=== PATIENT | female | born 1960 | race African-American/Black ===

== ENCOUNTER 2016-10-26 23:59 | Inpatient (IN) | payer MEDICAID, OTHER ==
[~2016-10-26] VITALS: Ht 157.5 cm; Wt 60.1 kg
[2016-10-27] VITALS (30 sets, daily range): BP systolic 82–134; BP diastolic 43–67
[2016-10-27 00:59] LABS: Basophils # (auto) 0 uL; Basophils % (auto) 0.1 % (0.0-2.0); Eosinophils # (auto) 0 uL; Eosinophils % (auto) 0.1 % (0.0-7.0); Hemoglobin 11.8 g/dL (12.2-16.2); Lymphocytes # (auto) 1.1 uL; Lymphocytes % (auto) 8.4 % (10.0-50.0); Mean Corpuscular Hemoglobin 31.1 pg (28.0-32.0); Mean Corpuscular Hgb Conc. 33.7 g/dL (32.0-36.0); Mean Corpuscular Volume 92.2 fL (80.0-100.0); Mean Platelet Volume 8.8 fL (7.4-10.4); Monocytes # (auto) 0.8 uL; Monocytes % (auto) 6.6 % (0.0-12.0); Neutrophils # (auto) 10.7 uL; Neutrophils % (auto) 84.8 % (37.0-80.0); Platelet Count (auto) 338 10^3/uL (140-450); Red Cell Distribution Width 14.6 % (11.6-16.0); White Blood Cell 12.6 10^3/uL (4.4-10.8)
[2016-10-27] MEDS ORDERED: LEVETIRACETAM INJ 1,000 MG in SODIUM CHL 0.9% 100 ML IV ONE (01:15)
[2016-10-27 01:19] LABS: Lactic Acid 5.7 mmol/L (0.4-2.0)
[2016-10-27 01:20] LABS: REFLEX LACTIC ACID YES OR NO YES
[2016-10-27 01:22] LABS: Albumin 3.4 g/dL (3.4-5.0); Alkaline Phosphatase 137 U/L (45-117); Anion Gap 21 (5-15); Aspartate Aminotransferase 26 U/L (15-37); BUN/Creatinine Ratio 18.6; Bilirubin, Total 0.5 mg/dL (0.2-1.0); Blood Urea Nitrogen 16 mg/dL (7-18); Calcium 7.9 mg/dL (8.5-10.1); Carbon Dioxide 19 mmol/L (21-32); Chloride 82 mmol/L (98-107); GFR African American 87 mL/min; GFR Non-African American 72 mL/min; Glucose 125 mg/dL (74-106); Magnesium 1.6 mg/dL (1.6-2.6); Sodium 122 mmol/L (136-145); Total Protein 7.4 g/dL (6.4-8.2)
[2016-10-27 01:34] LABS: Potassium 2.7 mmol/L (3.5-5.1)
[2016-10-27] MEDS ORDERED: LORazepam 2MG/ML-1ML VIAL ONE (01:44)
[2016-10-27] MEDS ORDERED: LORazepam 2MG/ML-1ML VIAL IV ONE (02:00)
[2016-10-27] MEDS ORDERED: LEVETIRACETAM 500 MG/5ML INJ IV ONE (02:05)
[2016-10-27] MEDS ORDERED: ETOMIDATE (2MG/ML) 20ML VIAL IV ONE ×2 (02:40→04:00)
[2016-10-27] MEDS ORDERED: SUCCINYLCHOLINE CHLORIDE 20 MG/ML 10ML VIAL IV ONE ×3 (02:40→04:00)
[2016-10-27] MEDS ORDERED: SODIUM CHLORIDE 0.9% 2,000 ML IV ONE (02:45)
[2016-10-27] MEDS ORDERED: MIDAZOLAM DRIP 100 mg/100mL NS 100 ML IV ONE (02:48)
[2016-10-27 03:02] LABS: Urine Bilirubin Negative (Negative); Urine Color Yellow (Yellow); Urine Glucose Normal (Normal); Urine Hyaline Cast FEW /lpf (0 - 2); Urine Ketone Negative (Negative); Urine Mucus FEW (None Seen); Urine Nitrite Negative (Negative); Urine RBC 1 /hpf (0 - 4); Urine Squamous Epithelial Cell FEW /hpf (<5); Urine Urobilinogen Normal (Negative)
[2016-10-27 03:03] LABS: Lactic Acid 7.8 mmol/L (0.4-2.0)
[2016-10-27 03:04] LABS: Urine Blood 1+ /uL (Negative)
[2016-10-27 03:08] LABS: REFLEX LACTIC ACID YES OR NO NO
[2016-10-27] MEDS ORDERED: SODIUM CHLORIDE 0.9% 1,000 ML IV ONE ×2 (03:15→10:30)
[2016-10-27] MEDS ORDERED: cefTRIAXone 1GM/50ML D5W 50 ML IV ONE ×2 (03:15→07:30)
[2016-10-27] MEDS: MIDAZOLAM DRIP 100 mg/100mL NS 100 ML IV SCH ×3 (03:49→17:38)
[2016-10-27] MEDS: PROPOFOL 100 ML IV SCH ×3 (04:26→21:22)
[2016-10-27] MEDS ORDERED: PROPOFOL 100 ML IV ONE (04:29)
[2016-10-27] MEDS: POTASSIUM CHL 20MEQ/100ML 100 ML IV SCH ×3 (04:45→08:21)
[2016-10-27] MEDS ORDERED: ACETAMINOPHEN 650 mg PER 20 mL UD ONE (06:03)
[2016-10-27] MEDS ORDERED: ACETAMINOPHEN 650 mg PER 20 mL UD GT ONE (06:15)
[2016-10-27] MEDS ORDERED: SODIUM CHLORIDE 0.9% 1,000 ML IV SCH (07:27)
[2016-10-27] MEDS ORDERED: LORazepam 2MG/ML-1ML VIAL IV PRN ×2 (07:30)
[2016-10-27] MEDS ORDERED: NITROGLYCERIN 0.4 MG SL TAB SL PRN (07:30)
[2016-10-27] MEDS ORDERED: MORPHINE SULF INJ 2 MG/ML SYRINGE 1ML IV PRN (07:30)
[2016-10-27] MEDS ORDERED: PROMETHAZINE HCL 25 MG/ML 1ML IV PRN (07:30)
[2016-10-27] MEDS: NOREPINEPHRINE BITARTRATE 250 ML IV SCH (07:48)
[2016-10-27] MEDS: cefTRIAXone 1GM/50ML D5W 50 ML IV SCH (07:49)
[2016-10-27] MEDS: PANTOPRAZOLE SODIUM 40 MG/10 ML VIAL IV SCH (07:49)
[2016-10-27] MEDS: ENOXAPARIN SOD 40 MG/0.4 ML SYRINGE SC SCH (07:49)
[2016-10-27] MEDS: SODIUM CHLORIDE 0.9% 1,000 ML IV SCH ×3 (08:22→20:50)
[2016-10-27 08:26] LABS: Partial Thromboplastin Time 28.2 sec (22.64-33.71); Prothrombin Time 11.9 sec (9.37-12.3)
[2016-10-27 08:40] LABS: INR 1.16 (0.9-1.15)
[2016-10-27] MEDS: CLINDAMYCIN 600MG IV 50 ML IV SCH ×2 (13:24→21:30)
[2016-10-27] MEDS ORDERED: ACETAMINOPHEN 650 mg PER 20 mL UD GT PRN (14:00)
[2016-10-27 14:45] LABS: Basophils # (auto) 0.1 uL; Basophils % (auto) 0.7 % (0.0-2.0); Eosinophils # (auto) 0 uL; Eosinophils % (auto) 0.2 % (0.0-7.0); Hemoglobin 10.2 g/dL (12.2-16.2); Lymphocytes # (auto) 1.1 uL; Lymphocytes % (auto) 9.9 % (10.0-50.0); Mean Corpuscular Hemoglobin 31.4 pg (28.0-32.0); Mean Corpuscular Volume 92.1 fL (80.0-100.0); Mean Platelet Volume 8.5 fL (7.4-10.4); Monocytes # (auto) 0.4 uL; Monocytes % (auto) 3.7 % (0.0-12.0); Neutrophils # (auto) 9.2 uL; Neutrophils % (auto) 85.5 % (37.0-80.0); Platelet Count (auto) 257 10^3/uL (140-450); White Blood Cell 10.8 10^3/uL (4.4-10.8)
[2016-10-27 15:07] LABS: Albumin 2.3 g/dL (3.4-5.0); BUN/Creatinine Ratio 10.9; Bilirubin, Total 0.4 mg/dL (0.2-1.0); Calcium 6.8 mg/dL (8.5-10.1); Potassium 3.4 mmol/L (3.5-5.1); Total Protein 5.3 g/dL (6.4-8.2)
[2016-10-27] MEDS: LEVETIRACETAM 500 MG/5ML ORAL SOLN UD GT SCH (21:23)
[2016-10-28] VITALS (106 sets, daily range): BP systolic 91–140; BP diastolic 46–78
[2016-10-28] MEDS: MIDAZOLAM DRIP 100 mg/100mL NS 100 ML IV SCH ×2 (00:10→06:22)
[2016-10-28] MEDS: SODIUM CHLORIDE 0.9% 1,000 ML IV SCH ×4 (03:30→23:30)
[2016-10-28 03:51] LABS: Basophils # (auto) 0 uL; Basophils % (auto) 0.2 % (0.0-2.0); Eosinophils # (auto) 0.1 uL; Eosinophils % (auto) 1.1 % (0.0-7.0); Lymphocytes # (auto) 1.3 uL; Lymphocytes % (auto) 14.6 % (10.0-50.0); Mean Corpuscular Hemoglobin 31.2 pg (28.0-32.0); Mean Corpuscular Hgb Conc. 33.5 g/dL (32.0-36.0); Mean Corpuscular Volume 93.1 fL (80.0-100.0); Mean Platelet Volume 8.9 fL (7.4-10.4); Monocytes # (auto) 0.4 uL; Monocytes % (auto) 4.7 % (0.0-12.0); Neutrophils # (auto) 7.1 uL; Neutrophils % (auto) 79.4 % (37.0-80.0); Platelet Count (auto) 217 10^3/uL (140-450); Red Cell Distribution Width 15.1 % (11.6-16.0); White Blood Cell 8.9 10^3/uL (4.4-10.8)
[2016-10-28 04:30] LABS: Albumin 2.1 g/dL (3.4-5.0); BUN/Creatinine Ratio 8.5; Bilirubin, Total 0.2 mg/dL (0.2-1.0); Calcium 6.9 mg/dL (8.5-10.1); Potassium 3.1 mmol/L (3.5-5.1); Total Protein 5.1 g/dL (6.4-8.2)
[2016-10-28] MEDS: CLINDAMYCIN 600MG IV 50 ML IV SCH ×3 (05:54→21:26)
[2016-10-28] MEDS: NOREPINEPHRINE BITARTRATE 250 ML IV SCH (07:29)
[2016-10-28] MEDS: cefTRIAXone 1GM/50ML D5W 50 ML IV SCH (09:03)
[2016-10-28] MEDS: PANTOPRAZOLE SODIUM 40 MG/10 ML VIAL IV SCH (10:22)
[2016-10-28] MEDS: LEVETIRACETAM 500 MG/5ML ORAL SOLN UD GT SCH ×2 (10:22→21:26)
[2016-10-28] MEDS: ENOXAPARIN SOD 40 MG/0.4 ML SYRINGE SC SCH (10:22)
[2016-10-28] MEDS ORDERED: POTASSIUM CHL 10% (20 MEQ/15ML) ORAL SOLN GT ONE (10:45)
[2016-10-28] MEDS ORDERED: FLUT1SPR5 (16:23)
[2016-10-28] MEDS ORDERED: CHOL20007 OR (16:24)
[2016-10-28] MEDS ORDERED: BENZ100C97 PO (16:24)
[2016-10-28] MEDS ORDERED: LORA-516 PO (16:25)
[2016-10-28] MEDS ORDERED: AMLO5TAB2 PO (16:30)
[2016-10-28] MEDS ORDERED: BENA40TA2 PO (16:31)
[2016-10-28] MEDS ORDERED: TRAM-297 PO (16:34)
[2016-10-28] MEDS ORDERED: PHE100C PO (16:35)
[2016-10-28] MEDS ORDERED: HYDR25TA4 PO (16:35)
[2016-10-28] MEDS ORDERED: PIRO-23 PO (16:36)
[2016-10-28] MEDS ORDERED: ACETTAB85 PO (16:37)
[2016-10-28] MEDS ORDERED: LEVO100T8 PO (16:37)
[2016-10-28] MEDS ORDERED: ATOR20TA50 PO (16:37)
[2016-10-28 17:57] LABS: Basophils # (auto) 0 uL; Basophils % (auto) 0.2 % (0.0-2.0); Eosinophils # (auto) 0.3 uL; Eosinophils % (auto) 3.9 % (0.0-7.0); Hematocrit 28.4 % (36.0-46.0); Hemoglobin 9.4 g/dL (12.2-16.2); Lymphocytes # (auto) 1.1 uL; Lymphocytes % (auto) 15.9 % (10.0-50.0); Mean Corpuscular Hemoglobin 31.5 pg (28.0-32.0); Mean Corpuscular Hgb Conc. 33.3 g/dL (32.0-36.0); Mean Corpuscular Volume 94.7 fL (80.0-100.0); Mean Platelet Volume 9.1 fL (7.4-10.4); Monocytes # (auto) 0.6 uL; Monocytes % (auto) 8.7 % (0.0-12.0); Neutrophils # (auto) 4.8 uL; Neutrophils % (auto) 71.3 % (37.0-80.0); Platelet Count (auto) 211 10^3/uL (140-450); Red Cell Distribution Width 15.4 % (11.6-16.0); SUSPECT VIEW TRANSMISSION; White Blood Cell 6.8 10^3/uL (4.4-10.8)
[2016-10-28] MEDS: PROPOFOL 100 ML IV SCH (23:45)
[2016-10-29] VITALS (70 sets, daily range): BP systolic 97–165; BP diastolic 47–79
[2016-10-29] MEDS: SODIUM CHLORIDE 0.9% 1,000 ML IV SCH ×2 (04:00→13:15)
[2016-10-29] MEDS: CLINDAMYCIN 600MG IV 50 ML IV SCH ×3 (06:00→22:00)
[2016-10-29] MEDS: NOREPINEPHRINE BITARTRATE 250 ML IV SCH (07:29)
[2016-10-29 08:03] LABS: Basophils # (auto) 0 uL; Basophils % (auto) 0.4 % (0.0-2.0); Eosinophils # (auto) 0.3 uL; Eosinophils % (auto) 5.1 % (0.0-7.0); Hematocrit 26.5 % (36.0-46.0); Hemoglobin 8.8 g/dL (12.2-16.2); Lymphocytes # (auto) 0.8 uL; Mean Corpuscular Hemoglobin 31.2 pg (28.0-32.0); Mean Corpuscular Hgb Conc. 33.4 g/dL (32.0-36.0); Mean Corpuscular Volume 93.6 fL (80.0-100.0); Mean Platelet Volume 9.2 fL (7.4-10.4); Monocytes # (auto) 0.3 uL; Monocytes % (auto) 6.1 % (0.0-12.0); Neutrophils # (auto) 3.5 uL; Neutrophils % (auto) 71.4 % (37.0-80.0); Platelet Count (auto) 196 10^3/uL (140-450); Red Cell Distribution Width 15.3 % (11.6-16.0); White Blood Cell 4.9 10^3/uL (4.4-10.8)
[2016-10-29 08:28] LABS: BUN/Creatinine Ratio 11.6; Calcium 7.5 mg/dL (8.5-10.1); Potassium 3.6 mmol/L (3.5-5.1)
[2016-10-29] MEDS: cefTRIAXone 1GM/50ML D5W 50 ML IV SCH (09:00)
[2016-10-29] MEDS ORDERED: PHENYTOIN IV DILANTIN 1,000 MG in SODIUM CHL 0.9% 250 ML IV ONE (09:15)
[2016-10-29] MEDS: PANTOPRAZOLE SODIUM 40 MG/10 ML VIAL IV SCH (10:28)
[2016-10-29] MEDS: LEVETIRACETAM 500 MG/5ML ORAL SOLN UD GT SCH ×2 (10:28→22:00)
[2016-10-29] MEDS: ENOXAPARIN SOD 40 MG/0.4 ML SYRINGE SC SCH (10:28)
[2016-10-29] MEDS: MORPHINE SULF INJ 2 MG/ML SYRINGE 1ML IV PRN ×2 (15:00→19:38)
[2016-10-30] VITALS (24 sets, daily range): BP systolic 120–164; BP diastolic 53–87
[2016-10-30] MEDS: SODIUM CHLORIDE 0.9% 1,000 ML IV SCH ×2 (03:33→18:08)
[2016-10-30 03:38] LABS: Basophils # (auto) 0 uL; Basophils % (auto) 0.4 % (0.0-2.0); Eosinophils # (auto) 0.1 uL; Hematocrit 29.8 % (36.0-46.0); Hemoglobin 10.2 g/dL (12.2-16.2); Lymphocytes # (auto) 1.4 uL; Lymphocytes % (auto) 14.9 % (10.0-50.0); Mean Corpuscular Hgb Conc. 34.4 g/dL (32.0-36.0); Mean Platelet Volume 9.3 fL (7.4-10.4); Monocytes # (auto) 0.7 uL; Monocytes % (auto) 7.5 % (0.0-12.0); Neutrophils # (auto) 7.4 uL; Neutrophils % (auto) 76.2 % (37.0-80.0); Platelet Count (auto) 229 10^3/uL (140-450); Red Cell Distribution Width 15.3 % (11.6-16.0); White Blood Cell 9.7 10^3/uL (4.4-10.8)
[2016-10-30] MEDS: MORPHINE SULF INJ 2 MG/ML SYRINGE 1ML IV PRN (05:14)
[2016-10-30] MEDS: CLINDAMYCIN 600MG IV 50 ML IV SCH (06:14)
[2016-10-30] MEDS ORDERED: HALOPERIDOL LACTATE 5 MG/ML INJ VIAL ONE (07:42)
[2016-10-30] MEDS ORDERED: HALOPERIDOL LACTATE 5 MG/ML INJ VIAL IV ONE ×2 (08:00)
[2016-10-30] MEDS: cefTRIAXone 1GM/50ML D5W 50 ML IV SCH (09:05)
[2016-10-30] MEDS: PANTOPRAZOLE SODIUM 40 MG/10 ML VIAL IV SCH (09:43)
[2016-10-30] MEDS: LEVETIRACETAM 500 MG/5ML ORAL SOLN UD GT SCH ×2 (09:43→22:18)
[2016-10-30] MEDS: ENOXAPARIN SOD 40 MG/0.4 ML SYRINGE SC SCH (09:43)
[2016-10-30 10:18] LABS: BUN/Creatinine Ratio 7.8; Calcium 7.9 mg/dL (8.5-10.1); Potassium 3.2 mmol/L (3.5-5.1)
[2016-10-30] MEDS ORDERED: POTASSIUM CHL 20 Meq TABLET PO ONE (11:30)
[2016-10-30] MEDS ORDERED: NITROGLYCERIN 2% OINT 1GM PKG TD ONE (21:15)
[2016-10-30] MEDS ORDERED: ZOLPIDEM TARTRATE 5 MG TAB PO PRN (22:00)
[2016-10-31] VITALS (13 sets, daily range): BP systolic 129–165; BP diastolic 64–85
[2016-10-31 04:18] LABS: Basophils # (auto) 0 uL; Basophils % (auto) 0.4 % (0.0-2.0); Eosinophils # (auto) 0.3 uL; Eosinophils % (auto) 4.4 % (0.0-7.0); Hematocrit 29.5 % (36.0-46.0); Lymphocytes # (auto) 1.1 uL; Lymphocytes % (auto) 14.8 % (10.0-50.0); Mean Corpuscular Hemoglobin 31.7 pg (28.0-32.0); Mean Corpuscular Hgb Conc. 33.9 g/dL (32.0-36.0); Mean Corpuscular Volume 93.6 fL (80.0-100.0); Mean Platelet Volume 9.5 fL (7.4-10.4); Monocytes # (auto) 0.7 uL; Monocytes % (auto) 9.1 % (0.0-12.0); Neutrophils # (auto) 5.4 uL; Neutrophils % (auto) 71.3 % (37.0-80.0); Platelet Count (auto) 202 10^3/uL (140-450); Red Cell Distribution Width 15.6 % (11.6-16.0); White Blood Cell 7.5 10^3/uL (4.4-10.8)
[2016-10-31 04:33] LABS: Potassium 3.3 mmol/L (3.5-5.1)
[2016-10-31 04:40] LABS: Calcium 7.9 mg/dL (8.5-10.1)
[2016-10-31] MEDS ORDERED: POTASSIUM CHL 20 Meq TABLET PO ONE (07:30)
[2016-10-31] MEDS ORDERED: ACETAMINOPHEN 325 MG TAB PO PRN (08:15)
[2016-10-31] MEDS: cefTRIAXone 1GM/50ML D5W 50 ML IV SCH (09:02)
[2016-10-31] MEDS: LEVETIRACETAM 500 MG/5ML ORAL SOLN UD GT SCH (10:27)
[2016-10-31] MEDS: PANTOPRAZOLE SODIUM 40 MG/10 ML VIAL IV SCH (10:27)
[2016-10-31] MEDS: ENOXAPARIN SOD 40 MG/0.4 ML SYRINGE SC SCH (10:27)
[2016-10-31] MEDS ORDERED: LEVE500T22 PO (16:23)
[2016-10-31] MEDS ORDERED: CEPH250C PO (16:24)
[2016-10-31] MEDS ORDERED: PRO625LQ PO (16:28)
== END 2016-10-31 18:15 | disposition home or self-care (01) | DRG 720 ==
LOC: ER 10-27 → TELE 10-27 00:01 → ICU WEST 10-27 18:18
PROVIDERS: ADMIT Internal Medicine; ATTEND Internal Medicine
PROC: 5A1945Z Respiratory Ventilation, 24-96 Consecutive Hours (ICD-10-PCS; principal; 2016-10-27)
PROC: 0BH17EZ Insertion of Endotracheal Airway into Trachea, Via Natural or Artificial Opening (ICD-10-PCS; 2016-10-27)
DX: A41.9 Sepsis, unspecified organism (principal); J96.00 Acute respiratory failure, unspecified whether with hypoxia or hypercapnia; R65.21 Severe sepsis with septic shock; G93.41 Metabolic encephalopathy; E87.2 Acidosis; J15.5 Pneumonia due to Escherichia coli; I95.9 Hypotension, unspecified; E87.1 Hypo-osmolality and hyponatremia; I10 Essential (primary) hypertension; E87.6 Hypokalemia; E88.09 Other disorders of plasma-protein metabolism, not elsewhere classified; G40.401 Other generalized epilepsy and epileptic syndromes, not intractable, with status epilepticus; E03.9 Hypothyroidism, unspecified; E78.5 Hyperlipidemia, unspecified; R40.2420 Glasgow coma scale score 9-12, unspecified time; Z86.2 Personal history of diseases of the blood and blood-forming organs and certain disorders involving the immune mechanism; Z79.899 Other long term (current) drug therapy
CPT/HCPCS: 31500; 36415; 36600; 70450; 71010; 74176; 80048; 80053; 80061; 80185; 80320; 81001; 82805; 82962; 83605; 83735; 84484; 85025; 85610; 85652; 85730; 86141; 87040; 87070; 87077; 87081; 87086; 87186; 87205; 93005; 94002; 94003; 95819; 96361; 96365; 96366; 96367; 96375; 97001; A4565; C9113; G0434; J0330; J0696; J2704; J3480; J3490

== ENCOUNTER 2017-07-23 17:55 | Emergency (ER) | payer MEDICAID ==
[~2017-07-23] VITALS: Ht 154.9 cm; Wt 67.1 kg
[~2017-07-23 17:55] MED LIST: ACETTAB85 PO; AMLO5TAB2 PO; ATOR20TA50 PO; BENA40TA7 PO; BENZ100C97 PO; CEPH250C PO; CHOL20007 OR; FLUT1SPR5; HYDR25TA4 PO; LEVE500T22 PO; LEVO100T8 PO; LORA-516 PO; PHE100C PO; PIRO-23 PO; PRO625LQ PO; TRAM-297 PO
[2017-07-23 18:32] VITALS: BP 154/76
== END 2017-07-23 22:46 | disposition home or self-care (01) ==
LOC: ER 18:06
DX: J40 Bronchitis, not specified as acute or chronic (principal); R51 Headache; I10 Essential (primary) hypertension
CPT/HCPCS: 70450

== ENCOUNTER 2017-08-27 16:06 | Emergency (ER) | payer MEDICAID ==
[~2017-08-27] VITALS: Ht 154.9 cm; Wt 61.2 kg
[2017-08-27 17:14] VITALS: BP 115/75
== END 2017-08-27 17:44 | disposition home or self-care (01) ==
LOC: ER 16:08
DX: J21.9 Acute bronchiolitis, unspecified (principal); I10 Essential (primary) hypertension; M19.90 Unspecified osteoarthritis, unspecified site
CPT/HCPCS: 71046

== ENCOUNTER 2017-12-22 16:10 | Emergency (ER) | payer MEDICAID ==
[~2017-12-22] VITALS: Ht 154.9 cm; Wt 61.2 kg
[2017-12-22 16:39] VITALS: BP 127/79
[2017-12-22] MEDS ORDERED: KETOROLAC TROMETH 60MG/2ML VIAL IM ONE (17:00)
[2017-12-22 17:28] LABS: Urine Bacteria FEW /hpf (None Seen); Urine Blood TRACE /uL (Negative); Urine Specific Gravity 1.018 (1.001-1.035); Urine WBC 2 /hpf (0 - 5)
== END 2017-12-22 18:02 | disposition home or self-care (01) ==
LOC: ER 16:10
DX: N39.0 Urinary tract infection, site not specified (principal); N28.1 Cyst of kidney, acquired; M19.90 Unspecified osteoarthritis, unspecified site; I10 Essential (primary) hypertension; E07.9 Disorder of thyroid, unspecified; Z79.899 Other long term (current) drug therapy
CPT/HCPCS: 74176; 81001

== ENCOUNTER 2018-01-09 15:18 | Emergency (ER) | payer MEDICAID ==
[~2018-01-09] VITALS: Ht 154.9 cm; Wt 63.5 kg
[2018-01-09 16:41] LABS: Basophils # (auto) 0.1 uL; Basophils % (auto) 0.9 % (0.0-2.0); Eosinophils # (auto) 0.5 uL; Eosinophils % (auto) 5.8 % (0.0-7.0); Hematocrit 33.4 % (36.0-46.0); Hemoglobin 10.7 g/dL (12.2-16.2); Lymphocytes # (auto) 1.7 uL; Lymphocytes % (auto) 20.9 % (10.0-50.0); Mean Corpuscular Hemoglobin 29.6 pg (28.0-32.0); Mean Corpuscular Hgb Conc. 32.1 g/dL (32.0-36.0); Mean Corpuscular Volume 92.4 fL (80.0-100.0); Monocytes # (auto) 0.6 uL; Monocytes % (auto) 7.7 % (0.0-12.0); Neutrophils # (auto) 5.2 uL; Neutrophils % (auto) 64.7 % (37.0-80.0); Nucleated Red Blood Cells % 0.2 %; Platelet Count (auto) 263 10^3/uL (140-450); Red Blood Cells 3.61 10^6/uL (4.0-5.20); Red Cell Distribution Width 15.2 % (11.8-14.3)
[2018-01-09 17:03] LABS: Urine Bacteria NONE SEEN /hpf (None Seen); Urine Blood TRACE /uL (Negative); Urine Specific Gravity 1.018 (1.001-1.035); Urine WBC 6 /hpf (0 - 5)
[2018-01-09 17:21] LABS: Albumin 3.2 g/dL (3.4-5.0); Anion Gap 10 (5-15); Blood Urea Nitrogen 27 mg/dL (7-18); Calcium 8.6 mg/dL (8.5-10.1); Carbon Dioxide 22 mmol/L (21-32); Chloride 108 mmol/L (98-107); Glucose 94 mg/dL (74-106); Potassium 4.3 mmol/L (3.5-5.1); Sodium 140 mmol/L (136-145)
[2018-01-09 17:22] LABS: Alanine Aminotransferase 17 U/L (13-56); Aspartate Aminotransferase 15 U/L (15-37); BUN/Creatinine Ratio 30.3; GFR African American 84 mL/min; GFR Non-African American 69 mL/min
[2018-01-09 17:32] LABS: Alkaline Phosphatase 147 U/L (45-117); Bilirubin, Total 0.2 mg/dL (0.2-1.0); Total Protein 8.3 g/dL (6.4-8.2)
[2018-01-09 22:00] VITALS: BP 161/72
== END 2018-01-09 22:33 | disposition home or self-care (01) ==
LOC: ER 15:22
DX: N39.0 Urinary tract infection, site not specified (principal); D64.9 Anemia, unspecified; M19.90 Unspecified osteoarthritis, unspecified site; E78.5 Hyperlipidemia, unspecified; I10 Essential (primary) hypertension; E07.9 Disorder of thyroid, unspecified; Z79.899 Other long term (current) drug therapy
CPT/HCPCS: 36415; 71045; 74176; 80053; 81001; 83735; 84484; 85025; 93005

== ENCOUNTER 2018-02-08 20:46 | Inpatient (IN) | payer MEDICAID ==
[~2018-02-08] VITALS: Ht 160 cm; Wt 71.6 kg
[2018-02-08] MEDS ORDERED: SODIUM CHLORIDE 0.9% 1,000 ML IV ONE (21:45)
[2018-02-08 22:04] LABS: Mean Corpuscular Volume 95.2 fL (80.0-100.0)
[2018-02-08 22:06] LABS: Hematocrit 15.7 % (36.0-46.0); Mean Corpuscular Hemoglobin 31.1 pg (28.0-32.0); Mean Corpuscular Hgb Conc. 32.7 g/dL (32.0-36.0); Platelet Count (auto) 190 10^3/uL (140-450); Red Blood Cells 1.65 10^6/uL (4.0-5.20); Red Cell Distribution Width 17.9 % (11.8-14.3)
[2018-02-08 22:27] LABS: Basophils % (manual) 0 (0.0-2.0); Blast Cells 0; Eosinophils % (manual) 0 (0-7); Hemoglobin 5.1 g/dL (12.2-16.2); Metamyelocytes % 0; Myelocytes % 0; Promyelocytes % 0; Reactive Lymphocytes 0
[2018-02-08] MEDS ORDERED: IOHEXOL 350 MG/ML 100ML IJ ONE (22:34)
[2018-02-08 22:59] LABS: Band Neutrophils % (manual) 2; Lymphocytes % (manual) 10 (10.0-50.0); Monocytes % (manual) 4 (0-12)
[2018-02-08 23:16] LABS: Albumin 2.2 g/dL (3.4-5.0); BUN/Creatinine Ratio 37.8; Bilirubin, Total 0.2 mg/dL (0.2-1.0); Calcium 7.5 mg/dL (8.5-10.1); Potassium 3.4 mmol/L (3.5-5.1); Total Protein 5.3 g/dL (6.4-8.2)
[2018-02-09] VITALS (11 sets, daily range): BP systolic 82–129; BP diastolic 33–81
[2018-02-09] MEDS ORDERED: ACETAMINOPHEN 325 MG TAB PO PRN (01:00)
[2018-02-09] MEDS ORDERED: ONDANSETRON HCL 4 MG/2 ML VIAL IV PRN (01:00)
[2018-02-09] MEDS ORDERED: NITROGLYCERIN 0.4 MG SL TAB SL PRN (01:00)
[2018-02-09] MEDS ORDERED: MORPHINE SULF(PF) 0.5MG/ML 10ML VIAL IV PRN (01:00)
[2018-02-09] MEDS ORDERED: TEMAZEPAM 15 MG CAP PO PRN (01:00)
[2018-02-09] MEDS ORDERED: PANTOPRAZOLE 40 MG/10 ML VIAL IV ONE (01:30)
[2018-02-09] MEDS: SODIUM CHLORIDE 0.9% 1,000 ML IV SCH ×2 (01:31→14:48)
[2018-02-09] MEDS: HYDROcodone-ACET 5/325MG TAB PO PRN ×2 (03:19→20:37)
[2018-02-09 08:22] LABS: Urine Bacteria FEW /hpf (None Seen); Urine Blood Negative /uL (Negative); Urine Specific Gravity 1.034 (1.001-1.035); Urine WBC 10 /hpf (0 - 5)
[2018-02-09] MEDS: PANTOPRAZOLE 40 MG/10 ML VIAL IV SCH ×2 (09:50→22:00)
[2018-02-09] MEDS: LEVOTHYROXINE SODIUM 100 MCG TAB PO SCH (09:51)
[2018-02-09] MEDS: PHENYTOIN SODIUM 100 MG CAP PO SCH (09:51)
[2018-02-09] MEDS: LEVETIRACETAM 500 MG TAB PO SCH ×2 (09:53→22:00)
[2018-02-09] MEDS ORDERED: PANTOPRAZOLE 40 MG/10 ML VIAL IV SCH (10:00)
[2018-02-09 10:06] LABS: Hematocrit 30.9 % (36.0-46.0); Hemoglobin 9.9 g/dL (12.2-16.2)
[2018-02-09 10:31] LABS: Albumin 2.4 g/dL (3.4-5.0); BUN/Creatinine Ratio 49.6; Bilirubin, Total 0.2 mg/dL (0.2-1.0); Calcium 7.6 mg/dL (8.5-10.1); Potassium 3.7 mmol/L (3.5-5.1); Total Protein 5.7 g/dL (6.4-8.2)
[2018-02-09] MEDS: ATORVASTATIN 20 MG TAB PO SCH (22:00)
[2018-02-09] MEDS ORDERED: PANTOPRAZOLE 40 MG TAB PO ONE (22:27)
[2018-02-10] VITALS (7 sets, daily range): BP systolic 92–134; BP diastolic 43–73
[2018-02-10] MEDS: HYDROcodone-ACET 5/325MG TAB PO PRN ×2 (03:49→20:06)
[2018-02-10] MEDS: SODIUM CHLORIDE 0.9% 1,000 ML IV SCH ×2 (04:41→16:12)
[2018-02-10 04:58] LABS: Urine Bacteria FEW /hpf (None Seen); Urine Blood Negative /uL (Negative); Urine Specific Gravity 1.013 (1.001-1.035); Urine WBC 7 /hpf (0 - 5)
[2018-02-10] MEDS: LEVOTHYROXINE SODIUM 100 MCG TAB PO SCH (06:04)
[2018-02-10 06:43] LABS: Creatinine, Urine 43 mg/dL (30.0-125.0); Sodium Urine 83 mmol/L (40-220)
[2018-02-10 07:27] LABS: Basophils # (auto) 0 uL; Basophils % (auto) 0.5 % (0.0-2.0); Eosinophils # (auto) 0.2 uL; Eosinophils % (auto) 2.2 % (0.0-7.0); Hematocrit 29.1 % (36.0-46.0); Hemoglobin 10.1 g/dL (12.2-16.2); Lymphocytes # (auto) 1.9 uL; Lymphocytes % (auto) 19.8 % (10.0-50.0); Mean Corpuscular Hemoglobin 30.3 pg (28.0-32.0); Mean Corpuscular Hgb Conc. 34.5 g/dL (32.0-36.0); Mean Corpuscular Volume 87.7 fL (80.0-100.0); Monocytes # (auto) 0.7 uL; Neutrophils # (auto) 6.8 uL; Neutrophils % (auto) 70.5 % (37.0-80.0); Nucleated Red Blood Cells % 0.1 %; Platelet Count (auto) 114 10^3/uL (140-450); Red Blood Cells 3.32 10^6/uL (4.0-5.20); Red Cell Distribution Width 17.4 % (11.8-14.3); White Blood Cell 9.6 10^3/uL (4.4-10.8)
[2018-02-10 07:56] LABS: Albumin 2.5 g/dL (3.4-5.0); BUN/Creatinine Ratio 35.9; Bilirubin, Total 0.2 mg/dL (0.2-1.0); Calcium 7.8 mg/dL (8.5-10.1); Phosphorus 2.2 mg/dL (2.5-4.90); Potassium 3.9 mmol/L (3.5-5.1); Total Protein 5.8 g/dL (6.4-8.2); Uric Acid 6.3 mg/dL (2.6-6.0)
[2018-02-10] MEDS: PHENYTOIN SODIUM 100 MG CAP PO SCH (09:10)
[2018-02-10] MEDS: PANTOPRAZOLE 40 MG/10 ML VIAL IV SCH ×2 (09:10→21:00)
[2018-02-10] MEDS: LEVETIRACETAM 500 MG TAB PO SCH ×2 (09:11→21:00)
[2018-02-10] MEDS ORDERED: GOLYTELY 4L KIT PO ONE (10:15)
[2018-02-10 10:56] LABS: INR 0.94 (0.9-1.15); Prothrombin Time 10.1 sec (9.27-12.13)
[2018-02-10] MEDS ORDERED: POTASSIUM CHL 20 Meq TABLET PO ONE (13:00)
[2018-02-10] MEDS: ATORVASTATIN 20 MG TAB PO SCH (21:00)
[2018-02-11 05:00] VITALS: BP 108/59
[2018-02-11] MEDS ORDERED: GOLYTELY 4L KIT PO ONE (06:00)
[2018-02-11] MEDS: LEVOTHYROXINE SODIUM 100 MCG TAB PO SCH (06:13)
[2018-02-11] MEDS: SODIUM CHLORIDE 0.9% 1,000 ML IV SCH (06:13)
[2018-02-11] MEDS: HYDROcodone-ACET 5/325MG TAB PO PRN (06:17)
[2018-02-11 07:19] LABS: Hematocrit 28.4 % (36.0-46.0); Hemoglobin 9.6 g/dL (12.2-16.2)
[2018-02-11 08:00] VITALS: BP 106/55
[2018-02-11] MEDS ORDERED: LIDOCAINE VISCOUS 2% 15ML UD ONE (08:25)
[2018-02-11] MEDS ORDERED: diphenhdrAMINE HCL 50 MG/1 ML VL ONE (08:25)
[2018-02-11] MEDS ORDERED: SODIUM CHLORIDE LOCK 10 ML ONE (08:25)
[2018-02-11] MEDS: PANTOPRAZOLE 40 MG/10 ML VIAL IV SCH (09:14)
[2018-02-11] MEDS: PHENYTOIN SODIUM 100 MG CAP PO SCH (09:15)
[2018-02-11] MEDS: LEVETIRACETAM 500 MG TAB PO SCH (09:15)
[2018-02-11] MEDS ORDERED: PANT40TA2 PO (10:41)
[2018-02-11 11:44] VITALS: BP 106/70
[2018-02-11] MEDS: fentaNYL CITRATE 100 MCG/2 ML VL ONE ×2 (12:06→12:09)
[2018-02-11] MEDS: MIDAZOLAM HCL 5 MG/ML-1ML VIAL ONE ×3 (12:06→12:12)
[2018-02-11] MEDS ORDERED: MIDAZOLAM HCL 5 MG/ML-1ML VIAL ONE (12:14)
[2018-02-11] MEDS ORDERED: fentaNYL CITRATE 100 MCG/2 ML VL ONE (12:14)
[2018-02-11 14:20] VITALS: BP 115/74
== END 2018-02-11 17:12 | disposition home or self-care (01) | DRG 241 ==
LOC: EDBD 20:46 → ER 20:46 → TELE 20:47 → TELE-EAST 02-10 03:10
PROVIDERS: ADMIT Nurse Practitioner; ATTEND Internal Medicine
PROC: 30233N1 Transfusion of Nonautologous Red Blood Cells into Peripheral Vein, Percutaneous Approach (ICD-10-PCS; principal; 2018-02-09)
PROC: 0DJD8ZZ Inspection of Lower Intestinal Tract, Via Natural or Artificial Opening Endoscopic (ICD-10-PCS; 2018-02-11)
PROC: 0DB68ZX Excision of Stomach, Via Natural or Artificial Opening Endoscopic, Diagnostic (ICD-10-PCS; 2018-02-11 12:04)
DX: K27.4 Chronic or unspecified peptic ulcer, site unspecified, with hemorrhage (principal); N17.0 Acute kidney failure with tubular necrosis; E43 Unspecified severe protein-calorie malnutrition; I95.9 Hypotension, unspecified; N18.3 Chronic kidney disease, stage 3 (moderate); K76.0 Fatty (change of) liver, not elsewhere classified; K42.9 Umbilical hernia without obstruction or gangrene; M19.90 Unspecified osteoarthritis, unspecified site; D62 Acute posthemorrhagic anemia; I12.9 Hypertensive chronic kidney disease with stage 1 through stage 4 chronic kidney disease, or unspecified chronic kidney disease; G40.909 Epilepsy, unspecified, not intractable, without status epilepticus; E03.9 Hypothyroidism, unspecified; E78.5 Hyperlipidemia, unspecified; K29.81 Duodenitis with bleeding; K29.71 Gastritis, unspecified, with bleeding; Z79.899 Other long term (current) drug therapy; T14.8XXA Other injury of unspecified body region, initial encounter; X58.XXXA Exposure to other specified factors, initial encounter; Y93.89 Activity, other specified; Y92.89 Other specified places as the place of occurrence of the external cause
CPT/HCPCS: 36415; 36430; 70450; 71260; 74177; 80053; 81001; 82570; 84100; 84300; 84443; 84484; 84550; 85007; 85014; 85018; 85025; 85027; 85610; 86850; 86900; 86901; 86920; 87045; 87899; 93005; 93306; 96361; 96374; 96376; C9113; J2250

== ENCOUNTER 2019-03-05 16:16 | Emergency (ER) | payer MEDICAID ==
[~2019-03-05] VITALS: Ht 154.9 cm; Wt 65.8 kg
[~2019-03-05 16:16] MED LIST changes: -ACETTAB85 PO; +AMLO5TAB13 PO; -AMLO5TAB2 PO; -BENA40TA7 PO; -BENZ100C97 PO; -CEPH250C PO; -FLUT1SPR5; -LORA-516 PO; +PANT40TA2 PO; -PIRO-23 PO; -PRO625LQ PO; -TRAM-297 PO
[2019-03-05 16:52] LABS: Basophils # (auto) 0.1 uL; Basophils % (auto) 1.2 % (0.0-2.0); Eosinophils # (auto) 0.1 uL; Eosinophils % (auto) 2.1 % (0.0-7.0); Hematocrit 37.7 % (36.0-46.0); Hemoglobin 12.4 g/dL (12.2-16.2); Lymphocytes # (auto) 1.9 uL; Lymphocytes % (auto) 32.6 % (10.0-50.0); Mean Corpuscular Hemoglobin 30.1 pg (28.0-32.0); Mean Corpuscular Volume 91.3 fL (80.0-100.0); Monocytes # (auto) 0.6 uL; Monocytes % (auto) 9.7 % (0.0-12.0); Neutrophils # (auto) 3.2 uL; Neutrophils % (auto) 54.4 % (37.0-80.0); Nucleated Red Blood Cells % 0.1 %; Platelet Count (auto) 216 10^3/uL (140-450); Red Blood Cells 4.13 10^6/uL (4.0-5.20); Red Cell Distribution Width 16.3 % (11.8-14.3); White Blood Cell 5.9 10^3/uL (4.4-10.8)
[2019-03-05 17:07] LABS: Alanine Aminotransferase 58 U/L (13-56); Albumin 3.3 g/dL (3.4-5.0); Anion Gap 13 (5-15); Aspartate Aminotransferase 46 U/L (15-37); BUN/Creatinine Ratio 13.9; Blood Urea Nitrogen 11 mg/dL (7-18); Calcium 8.5 mg/dL (8.5-10.1); Carbon Dioxide 23 mmol/L (21-32); Chloride 108 mmol/L (98-107); GFR African American 96 mL/min; GFR Non-African American 79 mL/min; Glucose 104 mg/dL (74-106); Potassium 3.9 mmol/L (3.5-5.1); Sodium 144 mmol/L (136-145)
[2019-03-05 17:07] LABS: Urine Bacteria FEW /hpf (None Seen); Urine Blood 1+ /uL (Negative); Urine Specific Gravity 1.005 (1.001-1.035); Urine WBC 1 /hpf (0 - 5)
[2019-03-05 17:09] LABS: Alkaline Phosphatase 153 U/L (45-117); Bilirubin, Total 0.2 mg/dL (0.2-1.0); Total Protein 8.5 g/dL (6.4-8.2)
[2019-03-05] MEDS ORDERED: HYDROcodone-ACET 5/325MG TAB PO ONE (21:00)
[2019-03-05 22:00] VITALS: BP 133/57
== END 2019-03-05 22:47 | disposition home or self-care (01) ==
LOC: ER 16:24
DX: N39.0 Urinary tract infection, site not specified (principal); I12.9 Hypertensive chronic kidney disease with stage 1 through stage 4 chronic kidney disease, or unspecified chronic kidney disease; N18.9 Chronic kidney disease, unspecified; E78.5 Hyperlipidemia, unspecified; I10 Essential (primary) hypertension; Z86.39 Personal history of other endocrine, nutritional and metabolic disease; Z87.442 Personal history of urinary calculi; Z79.899 Other long term (current) drug therapy
CPT/HCPCS: 36415; 74176; 80053; 81001; 85025

== ENCOUNTER 2022-07-26 15:42 | Emergency (ER) | payer MEDICAID ==
[~2022-07-26] VITALS: Ht 154.9 cm; Wt 61.5 kg
[~2022-07-26 15:42] MED LIST changes: +AMLO-489 PO; -AMLO5TAB13 PO; -LEVE500T22 PO; +LEVE500T32 PO
[2022-07-26 19:14] VITALS: BP 131/62
[2022-07-26] MEDS ORDERED: AZIT250T8 PO (19:14)
== END 2022-07-26 19:19 | disposition home or self-care (01) ==
LOC: ER 15:46
DX: J18.9 Pneumonia, unspecified organism (principal); I10 Essential (primary) hypertension; E78.5 Hyperlipidemia, unspecified; E03.9 Hypothyroidism, unspecified
CPT/HCPCS: 71046